=== PATIENT | male | born 1940 | race Caucasian/White ===

== ENCOUNTER 2021-02-22 11:01 | Emergency (ER) | payer MEDICARE ==
[2021-02-22 11:42] LABS: HEMOGLOBIN 10.9 gm/dl (14.0-17.5); RED BLOOD COUNT 5.02 M/UL (4.20-5.50); WHITE BLOOD COUNT 8.9 K/UL (4.5-11.0)
[2021-02-22 12:18] LABS: BUN/CREATININE RATIO 19 (0-10)
== END 2021-02-22 15:55 | disposition home or self-care (01) ==
LOC: ER1 11:01
PROVIDERS: Physician Assistant
DX: R53.1 Weakness (principal); E11.9 Type 2 diabetes mellitus without complications; I10 Essential (primary) hypertension; Z90.49 Acquired absence of other specified parts of digestive tract; Z79.899 Other long term (current) drug therapy; Z79.01 Long term (current) use of anticoagulants
CPT/HCPCS: 80053; 81001; 82550; 82553; 82962; 83874; 84484; 85025; 93005; 99285